=== PATIENT | female | born 1950 | race Caucasian/White ===

== ENCOUNTER 2019-04-25 13:44 | Outpatient (CLI) | payer MEDICARE, OTHER ==
--- NOTE | 2019-04-25 14:02 | RAD ---
XR Foot Rt 3 View STANDARD History: Right foot pain. Comparison: None. Findings: No acute fracture or malalignment. Mild hallux varus deformity with lateral subluxation of the sesamoids. Mild metatarsus primus varus. Small dorsal and plantar calcaneal spurs. No acute osseous abnormality. Impression: 1. No acute fracture or malalignment. 2. Mild hallux valgus deformity and metatarsus primus varus. 3. Small plantar and dorsal calcaneal spurs. 4. Punctate radiopacity within the lateral soft tissues of the forefoot at the level of the fifth met atarsal neck.
== END 2019-04-25 13:45 | disposition home or self-care (01) ==
LOC: BICRAD 13:44
PROVIDERS: ATTEND Family Medicine
DX: M79.671 Pain in right foot (principal); M20.11 Hallux valgus (acquired), right foot; M20.5X1 Other deformities of toe(s) (acquired), right foot; M77.31 Calcaneal spur, right foot

== ENCOUNTER 2020-02-28 14:19 | Outpatient (CLI) | payer MEDICARE, OTHER ==
--- NOTE | 2020-02-28 14:56 | RAD ---
THORACIC SPINE TWO VIEWS: 02/28/20 HISTORY: Fall. Age-related osteoporosis. COMPARISON: None. FINDINGS: There is mild dextroscoliosis centered at the mid to upper thoracic spine. No compression deformity i s appreciated. IMPRESSION: Low grade dextroscoliosis of the mid to upper thoracic spine. No acute osseous abnormality. POS: HOME
== END 2020-02-28 14:20 | disposition home or self-care (01) ==
LOC: BICRAD 14:19
PROVIDERS: ATTEND Internal Medicine Rheumatology
DX: M53.84 Other specified dorsopathies, thoracic region (principal); M81.0 Age-related osteoporosis without current pathological fracture; M41.9 Scoliosis, unspecified
CPT/HCPCS: 72070

== ENCOUNTER 2022-04-19 08:21 | Inpatient (IN) | payer MEDICARE, OTHER ==
[2022-04-19] MEDS ORDERED: Ondansetron PF 4 MG/2 ML Vial ONE ×2 (09:06→16:30)
[2022-04-19] MEDS ORDERED: Morphine 4 MG/ML VIAL ONE (09:06)
[2022-04-19 09:30] LABS: #Lymphocytes 1.2 thou/uL (1.20-3.40); #Neutrophils 8.4 thou/uL (1.40-6.50); %Basophils 0.2 % (0.0-1.0); %Eosinophils 0.4 % (0.0-10.0); %Lymphocytes 11.4 % (21.0-51.0); %Neutrophils 79.1 % (42.0-75.0); Hemoglobin 13.8 g/dL (12.0-16.0); Mean Corpuscular HGB CONC 33.9 g/dL (32.0-36.0); Mean Corpuscular Hemoglobin 31.3 pg (27.0-31.0); Mean Corpuscular Volume 92.3 fL (78.0-98.0); Mean Platelet Volume 6.9 fL (7.4-10.4); Platelet Count 309 thou/uL (130-400); RBC Distribution Width 11.5 % (11.5-14.5); Red Blood Cell (RBC) Count 4.41 mill/uL (4.20-5.40); White Blood Cell (WBC) Count 10.6 thou/uL (4.8-10.8)
[2022-04-19] MEDS ORDERED: Iopamidol-370 76% 500 ML 1 ML ONE (09:37)
[2022-04-19 09:47] LABS: ALT (SGPT) 291 U/L (8-55); AST (SGOT) 470 U/L (5-34); Albumin 4.3 g/dL (3.4-4.8); Alkaline Phosphatase 151 U/L (40-110); Anion Gap 19 mmol/L (10-20); BUN (Urea Nitrogen) 21 mg/dL (9.8-20.1); Bilirubin, Total 3.1 mg/dL (0.2-1.2); Calc. Creatinine Clearance 0 mL/min (70-130); Calcium 9.6 mg/dL (7.8-10.44); Carbon Dioxide 20 mmol/L (23-31); Chloride 105 mmol/L (98-107); Estimated GFR 64; Globulin 2.8 g/dL (2.4-3.5); Glucose 121 mg/dL (83-110); Lipase 13 U/L (8-78); Potassium 3.9 mmol/L (3.5-5.1); Protein, Total 7.1 g/dL (5.8-8.1); Sodium 140 mmol/L (136-145)
[2022-04-19 10:10] LABS: Bilirubin Negative (Negative); Blood, Urine Negative (Negative); Clarity Clear (Clear); Glucose, Urine (Dipstick) Normal (Negative); Ketone, Urine 20 mg/dL (Negative); Leukocyte Negative Leu/uL (Negative); Nitrite Negative (Negative); Protein, Urine (Dipstick) Negative (Neg-Trace); Specific Gravity, Urine 1.018 (1.002-1.036); Urobilinogen 12 mg/dL (Less than 2); pH, Urine 7.5 (5.0-9.0)
[2022-04-19 11:24] LABS: HBCM Index 0.05 S/CO (0-0.79); HBSAg Index 0.23 S/CO (0-0.99); Hep A IgM AB Non-Reactive (NonReactive); Hep A IgM S/CO 0.18 S/CO (0-0.79); Hep B Surf Ag Non-Reactive S/CO (NonReactive); Hep C IgG Ab Non-Reactive (NonReactive); Hep C Index 0.09 S/CO (0-0.79); Hepatitis B Core IgM Abs Non-Reactive (NonReactive)
[2022-04-19] MEDS ORDERED: Piperacillin/Tazobactam 4.5 GM VIAL ONE (12:23)
[2022-04-19] MEDS ORDERED: Acetaminophen 325 MG TAB PO PRN (13:45)
[2022-04-19] MEDS ORDERED: Morphine 2 MG/ML VIAL SLOW IVP PRN (14:05)
[2022-04-19] MEDS ORDERED: Acetaminophen 650 MG Suppository PR PRN (14:50)
[2022-04-19] MEDS ORDERED: Piperacillin/Tazobactam 4.5 GM in Sodium Chloride 0.9% 100 ML IVPB SCH (14:50)
[2022-04-19] MEDS ORDERED: Ondansetron PF 4 MG/2 ML Vial IVP PRN ×2 (14:50→15:18)
[2022-04-19] MEDS: Sodium Chloride 0.9% 1,000 ML IV SCH (15:01)
[2022-04-19 15:14] VITALS: BMI 30.5
[2022-04-19] MEDS ORDERED: Ondansetron ODT 4 MG TAB SL PRN (15:18)
[2022-04-19] MEDS ORDERED: Indomethacin 50 MG SUPP ONE (16:19)
[2022-04-19] MEDS ORDERED: Iopamidol 30 ML ONE (16:20)
[2022-04-19] MEDS ORDERED: Ketorolac Tromethamine 30 MG/ML VIAL ONE (16:30)
[2022-04-19] MEDS ORDERED: Dexamethasone 20 MG/5 ML VIAL ONE (16:30)
[2022-04-19] MEDS ORDERED: Rocuronium Bromide 10 MG/ML (10ML VIAL) ONE (16:30)
[2022-04-19] MEDS ORDERED: PROPOFOL 200 MG/20 ML VIAL ONE (16:30)
[2022-04-19] MEDS ORDERED: ePHEDrine 50 MG/ML VIAL ONE (16:30)
[2022-04-19] MEDS ORDERED: NEOSTIGMINE 3 MG/3 ML SYR 3 MG/3 ML SYRINGE ONE (16:30)
[2022-04-19] MEDS ORDERED: Glycopyrrolate 0.2 MG/ML 5 ML SYRINGE ONE (16:30)
[2022-04-19] MEDS ORDERED: Lidocaine 1% MPF 2 ML VIAL ONE (16:30)
[2022-04-19] MEDS ORDERED: Promethazine HCl 25 MG in Sodium Chloride 0.9% 50 ML IVPB PRN (18:57)
[2022-04-19] MEDS ORDERED: Lorazepam (BATCHED) 2 MG/ML SYR SLOW IVP SCH (20:45)
[2022-04-19] MEDS: ALPRAZolam 0.25 MG TAB PO SCH (23:08)
[2022-04-19] MEDS: Bupropion 150 MG XL TAB PO SCH (23:08)
[2022-04-19] MEDS: Piperacillin/Tazobactam 3.375 GM in Sodium Chloride 0.9% 100 ML IVPB SCH (23:12)
[2022-04-20] MEDS: Piperacillin/Tazobactam 3.375 GM in Sodium Chloride 0.9% 100 ML IVPB SCH ×3 (05:53→20:05)
[2022-04-20] MEDS: Levothyroxine Sodium 112 MCG TAB PO SCH (05:56)
[2022-04-20 06:55] LABS: #Eosinphils 0.1 thou/uL (0.0-0.7); #Lymphocytes 1.6 thou/uL (1.20-3.40); #Monocytes 0.6 thou/uL (0.11-0.59); #Neutrophils 4.7 thou/uL (1.40-6.50); %Basophils 0.4 % (0.0-1.0); %Eosinophils 1.9 % (0.0-10.0); %Lymphocytes 22.2 % (21.0-51.0); %Neutrophils 66.5 % (42.0-75.0); Hemoglobin 12.7 g/dL (12.0-16.0); Mean Corpuscular HGB CONC 33.6 g/dL (32.0-36.0); Mean Corpuscular Hemoglobin 31.6 pg (27.0-31.0); Mean Corpuscular Volume 94.2 fL (78.0-98.0); Mean Platelet Volume 6.8 fL (7.4-10.4); Platelet Count 274 thou/uL (130-400); RBC Distribution Width 11.8 % (11.5-14.5); Red Blood Cell (RBC) Count 4.01 mill/uL (4.20-5.40); White Blood Cell (WBC) Count 7.1 thou/uL (4.8-10.8)
[2022-04-20 07:18] LABS: ALT (SGPT) 345 U/L (8-55); AST (SGOT) 246 U/L (5-34); Albumin 3.6 g/dL (3.4-4.8); Alkaline Phosphatase 144 U/L (40-110); Anion Gap 13 mmol/L (10-20); BUN (Urea Nitrogen) 12 mg/dL (9.8-20.1); Bilirubin, Total 1.6 mg/dL (0.2-1.2); Calc. Creatinine Clearance 82 mL/min (70-130); Calcium 8.3 mg/dL (7.8-10.44); Carbon Dioxide 22 mmol/L (23-31); Chloride 108 mmol/L (98-107); Estimated GFR 71; Globulin 2.6 g/dL (2.4-3.5); Glucose 83 mg/dL (83-110); Lipase 106 U/L (8-78); Potassium 3.4 mmol/L (3.5-5.1); Protein, Total 6.2 g/dL (5.8-8.1); Sodium 140 mmol/L (136-145)
[2022-04-20] MEDS: ALPRAZolam 0.25 MG TAB PO SCH ×2 (08:43→20:06)
[2022-04-20] MEDS: Bupropion 150 MG XL TAB PO SCH ×2 (08:44→20:05)
[2022-04-20] MEDS: Enoxaparin Sodium 40 MG/0.4 ML SYRINGE SC SCH (08:44)
[2022-04-20] MEDS: Sodium Chloride 0.9% 1,000 ML IV SCH (14:39)
[2022-04-21] MEDS: Levothyroxine Sodium 112 MCG TAB PO SCH (05:14)
[2022-04-21] MEDS: Piperacillin/Tazobactam 3.375 GM in Sodium Chloride 0.9% 100 ML IVPB SCH (05:15)
[2022-04-21 06:46] LABS: ALT (SGPT) 230 U/L (8-55); AST (SGOT) 89 U/L (5-34); Albumin 3.7 g/dL (3.4-4.8); Alkaline Phosphatase 129 U/L (40-110); Bilirubin, Direct 0.4 mg/dL (0.1-0.3); Bilirubin, Total 0.8 mg/dL (0.2-1.2); Protein, Total 6.3 g/dL (5.8-8.1)
[2022-04-21 07:42] VITALS: BP 130/74; TEMP 97.6
[2022-04-21] MEDS: Bupropion 150 MG XL TAB PO SCH (08:21)
[2022-04-21] MEDS: ALPRAZolam 0.25 MG TAB PO SCH (08:21)
[2022-04-21] MEDS: Enoxaparin Sodium 40 MG/0.4 ML SYRINGE SC SCH (08:22)
== END 2022-04-21 11:08 | disposition home or self-care (01) | DRG 446 ==
LOC: ERS 08:21 → T4-A 12:39
PROVIDERS: ADMIT Internal Medicine; ATTEND Internal Medicine
PROC: 0FC98ZZ Extirpation of Matter from Common Bile Duct, Via Natural or Artificial Opening Endoscopic (ICD-10-PCS; principal; 2022-04-19)
PROC: BF101ZZ Fluoroscopy of Bile Ducts using Low Osmolar Contrast (ICD-10-PCS; 2022-04-19)
DX: K80.30 Calculus of bile duct with cholangitis, unspecified, without obstruction (principal); Z66 Do not resuscitate; E03.9 Hypothyroidism, unspecified; F41.1 Generalized anxiety disorder; N81.10 Cystocele, unspecified; M81.0 Age-related osteoporosis without current pathological fracture; F41.9 Anxiety disorder, unspecified; Z88.2 Allergy status to sulfonamides; Z91.040 Latex allergy status; Z90.49 Acquired absence of other specified parts of digestive tract; Z90.710 Acquired absence of both cervix and uterus; Z85.9 Personal history of malignant neoplasm, unspecified; Z79.899 Other long term (current) drug therapy; Z79.890 Hormone replacement therapy
CPT/HCPCS: 36415; 74177; 74330; 80053; 80074; 80076; 81003; 83690; 84484; 85025; 87040; 93005; 96361; 96365; 96375; J1100; J1650; J1885; J2270; J2405; J2543; J2550; J2704; J3490; J7050; Q0162; Q9967

== ENCOUNTER 2025-06-14 14:00 | Inpatient (IN) | payer MEDICARE, OTHER ==
[2025-06-14 14:23] VITALS: BMI 31.1
[2025-06-19] MEDS ORDERED: Lidocaine 1% PF 5 ML VIAL ONE (08:15)
[2025-06-19] MEDS ORDERED: Rocuronium Bromide 10 MG/ML (10ML VIAL) ONE (08:15)
[2025-06-19] MEDS ORDERED: metroNIDAZOLE 500 MG (100 mL) BAG ONE (10:07)
[2025-06-19] MEDS ORDERED: fentaNYL PF 100 MCG/2 ML SYRINGE ONE (10:14)
[2025-06-19] MEDS ORDERED: Bupivacaine 0.25% HCL 30 ML VIAL ONE (10:18)
[2025-06-19] MEDS ORDERED: PROPOFOL 200 MG/20 ML VIAL ONE (10:53)
[2025-06-19] MEDS ORDERED: Ondansetron PF 4 MG/2 ML Vial ONE (11:39)
[2025-06-19] MEDS ORDERED: SUGAMMADEX SODIUM 200 MG/2 ML VIAL ONE (11:40)
== END 2025-06-19 19:00 | disposition home or self-care (01) | DRG 399 ==
LOC: UNDOADMIN 06-19 07:02 → SURG A 06-19 07:02
PROVIDERS: ADMIT Surgery; ATTEND Surgery
PROC: 0DTJ4ZZ Resection of Appendix, Percutaneous Endoscopic Approach (ICD-10-PCS; principal; 2025-06-19)
PROC: 8E0W4CZ Robotic Assisted Procedure of Trunk Region, Percutaneous Endoscopic Approach (ICD-10-PCS; 2025-06-19)
PROC: 3E033XZ Introduction of Vasopressor into Peripheral Vein, Percutaneous Approach (ICD-10-PCS; 2025-06-19)
DX: K38.8 Other specified diseases of appendix (principal); Z79.899 Other long term (current) drug therapy; Z79.890 Hormone replacement therapy; Z98.890 Other specified postprocedural states
CPT/HCPCS: 36416; 88304; 88341; 88342; A4314; J0169; J0665; J0694; J2405; J2704; S2900